=== PATIENT | male | born 1970 | race Caucasian/White ===

== ENCOUNTER 2017-02-22 09:55 | Outpatient (CLI) | payer OTHER | END 2017-02-22 09:56 | disposition home or self-care (01) | DX: Z00.00 Encounter for general adult medical examination without abnormal findings (principal) ==

== ENCOUNTER 2020-06-28 10:13 | Emergency (ER) | payer OTHER ==
[2020-06-28] MEDS ORDERED: BUPIVACAINE 0.5% PF 10 ML VIAL SUBQ STA (10:46)
[2020-06-28] MEDS ORDERED: BUFFERED LIDOCAINE 10 ML SYRINGE SUBQ STA (10:46)
--- NOTE | 2020-06-28 10:47 | ED Physician Documentation ---
PD HPI LOWER EXT INJURY - Stated complaint Stated Complaint: RT FT INJ - Chief complaint Chief Complaint: Ext Problem - History obtained from History obtained from: Patient - History of Present Illness PD HPI LOW EXT INJURY LOCATION: Right, Toe (great) Type of injury: Blunt / blow Where injury occurred: Work Timing - onset: Today Timing - duration: Minutes Timing - details: Abrupt onset, Still present Improved by: Rest, Ice, Immobilization Worsened by: Moving, Palpating Associated symptoms: Swelling, Discolored. No: Weakness, Numbness Contributing factors: No: Anticoagulated Similar symptoms before: Has not had sx before Recently seen: Not recently seen - Additional information Additional information: 50-year-old male was moving a bucket for his tractor when the bucket fell approximately 1 foot directly onto the top of his toes of the right foot. He has a comminuted displaced fracture of the right great toe and a subungual hematoma and the nail was removed without evidence of a laceration to the nailbed itself. The area is irrigated we will place him on antibiotic and onto a walking boot. Review of Systems Constitutional: denies: Fever Respiratory: denies: Cough GI: denies: Vomiting, Diarrhea PD PAST MEDICAL HISTORY - Past Surgical History Past Surgical History: No - Present Medications Home Medications: Ambulatory Orders Medication Instructions Recorded Confirmed Cephalexin [Keflex] 500 mg PO Q6H #20 capsule 06/28/20 Oxycodone HCl/Acetaminophen 1 - 2 each PO Q6H PRN #14 tablet 06/28/20 [Percocet 5-325 mg Tablet] - Allergies Allergies/Adverse Reactions: Allergies Allergy/AdvReac Type Severity Reaction Status Date / Time erythromycin base Allergy Emesis Verified 06/28/20 10:27 - Social History Does the pt smoke?: No Smoking Status: Never smoker Does the pt drink ETOH?: No Does the pt have substance abuse?: No - Immunizations Immunizations are current?: Yes - POLST Patient has POLST: No PD ED PE NORMAL - Vitals Vital signs reviewed: Yes (hypertensive ) - General General: Alert and oriented X 3, Well developed/nourished, Other (appears to be in pain ) - HEENT HEENT: Atraumatic, PERRL, EOMI - Respiratory Respiratory: No respiratory distress - Derm Derm: Normal color, Warm and dry, No rash - Extremities Extremities: No deformity, Other (There is swelling and tenderness to the right great toe and across the tops of the lesser toes right out about the interphalangeal joint. There is a subungual hematoma with out lacerations to the edge of the nail.) - Neuro Neuro: Alert and oriented X 3, tinner automatic 2-12 intact, No motor deficit, No sensory deficit, Normal speech Eye Opening: Spontaneous Motor: Obeys Commands Verbal: Oriented GCS Score: 15 - Psych Psych: Normal mood, Normal affect Results - Vitals Vitals: Vital Signs - 24 hr 06/28/20 10:27 Temperature 36.8 C Heart Rate 56 L Respiratory 20 Rate Blood Pressure 146/103 H O2 Saturation 99 Oxygen O2 Source Room air - Rads (name of study) foot Radiology: Prelim report reviewed (Impression: Comminuted, mildly displaced mid to distal first phalanx fracture.), EMP read indepedently, See rad report Procedures - Laceration (location) right great toe Length in cm: 0 Wound type: Clean, Other (Subungual hematoma without fracture of the nailbed) Neurovascular status: Sensory intact, Motor intact Anesthesia: OTH (Digital block with 50-50 lidocaine bupivacaine with excellent anesthesia.) Wound Preparation: Hibiclens, Irrigated copiously NS, Other (No laceration for repair nail is completely removed tolerated well and the nailbed is entirely intact. The nail recess is heavily irrigated.) Other: Patient tolerated well, No complications, Neurovascular intact, Dressing applied, Tetanus UTD PD MEDICAL DECISION MAKING - ED course Complexity details: reviewed old records, reviewed results, re-evaluated patient, considered differential, d/w patient, d/w family ED course: 50-year-old male with a 500 pound bucket from a piece of heavy equipment has fallen 1 foot onto the patient's toed and has fractured the great toe. As per customary procedure with a fracture and subungual hematoma the nail is removed after digital block and there is no laceration to the nailbed. The area is irrigated thoroughly and we will place the patient on antibiotic. He is placed into a walking boot and given a note for work for 2 weeks. Departure - Departure Disposition: 01 Home, Self Care Clinical Impression: Fracture of great toe, right, open Qualifiers: Encounter type: initial encounter Phalanx: distal Fracture alignment: displaced Qualified Code(s): S92.421B - Displaced fracture of distal phalanx of right great toe, initial encounter for open fracture Condition: Stable Instructions: ED Fx Toe Open, ED Boot Aircast Walker Follow-Up: MICHAEL LARSON MD [Primary Care Provider] - [facility] [Provider Group] Prescriptions: Cephalexin [Keflex] 500 mg PO Q6H #20 capsule Oxycodone HCl/Acetaminophen [Percocet 5-325 mg Tablet] 1 - 2 each PO Q6H PRN #14 tablet PRN Reason: pain Forms: Activity restrictions
--- NOTE | 2020-06-28 11:15 | XRAY Report ---
PROCEDURE: Foot 3 View RT INDICATIONS: trauma TECHNIQUE: 3 views of the foot were acquired. COMPARISON: None FINDINGS: Bones: There is a comminuted displaced fracture through the midportion of the first distal phalanx. N o intra-articular extension.. No suspicious bony lesions. Soft tissues: No tibiotalar joint effusion. Achilles tendon appears normal. IMPRESSION: Comminuted, mildly displaced mid distal first phalanx fracture. Reviewed by: Nilda Maier MD on 06/28/2020 11:14 AM PDT Approved by: Nilda Maier MD on 06/28/2020 11:14 AM PDT Station ID: [id number]
[2020-06-28 12:16] VITALS: BP 141/109
== END 2020-06-28 12:15 | disposition home or self-care (01) ==
LOC: ED 10:13
DX: S92.421B Displaced fracture of distal phalanx of right great toe, initial encounter for open fracture (principal); W20.8XXA Other cause of strike by thrown, projected or falling object, initial encounter; Y99.0 Civilian activity done for income or pay
CPT/HCPCS: 11730; 99283; 99284

== ENCOUNTER 2024-05-23 08:00 | Outpatient (CLI) | payer OTHER ==
--- NOTE | 2024-05-24 11:48 | XRAY Report ---
PROCEDURE: Foot 1-2V RT INDICATIONS: STRAIN OF ACHILLES TENDON TECHNIQUE: 2 views of the foot were acquired. COMPARISON: 06/28/2020 FINDINGS: Bones: No fractures or dislocations. Mild diffuse interphalangeal and first MTP joint degeneration. Prominent plantar and posterior calcaneal enthesophytes. No suspicious bony lesions. Soft tissues: No tibiotalar joint effusion. Achilles tendon appears normal. IMPRESSION: 1.No acute bony abnormality. 2.Prominent plantar and posterior calcaneal enthesophytes. 3.Mild diffuse interphalangeal and first MTP joint degeneration. Reviewed by: Juan Manuel Lizama MD on 05/24/2024 11:46 AM PDT Approved by: Juan Manuel Lizama MD on 05/24/2024 11:46 AM PDT Station ID: [id number]
== END 2024-05-23 23:59 | disposition home or self-care (01) ==
LOC: DI.S 08:00
PROVIDERS: ATTEND Emergency Medicine
DX: S86.011A Strain of right Achilles tendon, initial encounter (principal); M77.31 Calcaneal spur, right foot; M19.071 Primary osteoarthritis, right ankle and foot